=== PATIENT | female | born 1960 | race Caucasian/White ===

== ENCOUNTER 2023-09-09 17:39 | Emergency (ER) | payer OTHER, SELFPAY ==
[2023-09-09 17:45] VITALS: BP 151/94; PULSE 108; RESP 24; TEMP 37.9; O2SAT 98
--- NOTE | 2023-09-09 18:13 | ED.URI ---
HPI - URI/Sore Throat General Chief Complaint: Upper Respiratory Infection Stated Complaint: SOB/Sore Throat Time Seen by Provider: 09/09/23 18:13 Source: patient Mode of arrival: ambulatory Limitations: no limitations History of Present Illness HPI Narrative: 63-year-old female presents with complaint of, chest congestion, nasal congestion and headaches for 4 days. Afebrile. Positive chills. Denies chest pain and shortness of breath. Took bilateral to day to treat congestion. Using cough drops. States that cough is bad and cannot get any sleep at night. All systems reviewed and negative except as noted above. Related Data Home Medications Medication Instructions Recorded Confirmed amitriptyline 10 mg tablet 10 mg PO DAILY 09/09/23 09/09/23 aspirin 325 mg tablet 325 mg PO DAILY 09/09/23 09/09/23 hydroxyzine HCl 10 mg tablet 10 mg PO DAILY 09/09/23 09/09/23 lisinopril 40 mg tablet 40 mg PO DAILY 09/09/23 09/09/23 Allergies Allergy/AdvReac Type Severity Reaction Status Date / Time latex Allergy Mild Rash Verified 09/09/23 17:44 adhesive tape AdvReac Mild RASH Verified 09/09/23 17:44 Review of Systems Review of Systems: CONSTITUTIONAL: Denies fever, chills, or sweats. EYES: Denies visual changes, redness, or discharge. ENT: Reports rhinorrhea, congestion, sore throat. Denies otalgia. CARDIOVASCULAR: Denies chest pain, palpitations, or edema. RESPIRATORY: reports cough. Denies dyspnea. GASTROINTESTINAL: Denies abdominal pain, nausea, vomiting, or diarrhea. GENITOURINARY: Denies dysuria or hematuria. SKIN: Denies rash or itching. MUSCULOSKELETAL: Denies back pain, joint pain, or myalgia. NEUROLOGIC: Denies headache, numbness, or weakness. PSYCHIATRIC: Denies anxiety or depression. All other systems reviewed are negative, except as documented in HPI. PMFSH Comments At time of signature, agree with nursing past medical, surgical, social and family history. There is no relevant family history pertinent to the presenting complaint. Exam Narrative: GENERAL: This is a well-nourished, well-developed patient, in no apparent distress. HEAD: normocephalic, atraumatic. EYES: PERRL. Sclera clear/white. Vision is grossly intact. EARS: External ears normal, auditory canals clear and without drainage, TMs normal without perforation. Hearing grossly intact. NOSE: External nose normal with clear nasal drainage, mild congestion. THROAT: Mucous membranes moist, posterior pharynx clear. NECK: Neck supple, non-tender without lymphadenopathy, masses or thyromegaly. CARDIOVASCULAR: Regular rate and rhythm without murmurs, gallops, or rubs. RESPIRATORY: Clear to auscultation. Breath sounds equal bilaterally. No wheezes, rales, or rhonchi. SKIN: warm, Dry, intact with no suspicious lesions or rash, good texture and turgor. NEURO: awake, alert, and oriented to person, place and time. There were no obvious focal neurologic abnormalities. EXTREMITIES: No joint tenderness, effusion, or edema noted. Course Course Level of Care: Express Care Visit Vital Signs Vital signs: Vital Signs Temperature 37.9 C H 09/09/23 17:45 Pulse Rate 108 H 09/09/23 17:45 Respiratory Rate 24 H 09/09/23 17:45 Blood Pressure 151/94 H 09/09/23 17:45 Pulse Oximetry 98 09/09/23 17:45 Oxygen Delivery Room Air 09/09/23 17:45 Temperature 37.9 C H 09/09/23 17:45 Pulse Rate 108 H 09/09/23 17:45 Respiratory Rate 24 H 09/09/23 17:45 Blood Pressure 151/94 H 09/09/23 17:45 Pulse Oximetry 98 09/09/23 17:45 Oxygen Delivery Room Air 09/09/23 17:45 Reviewed Heart rate 88 auscultated, respiratory rate 20 at rest. MDM - URI/Sore Throat MDM Narrative Medical decision making narrative: negative COVID, influenza and strep. Lungs clear to auscultation. No respiratory distress. Patient nontoxic. Patient is aware of diagnosis, understands and agrees to treatment plan. Anticipatory guidance given. Patient a
== END 2023-09-09 18:32 | disposition home or self-care (01) ==
PROVIDERS: Emergency Provider Nurse Practitioner Family; PCP Physician Assistant
DX: J06.9 Acute upper respiratory infection, unspecified (principal); R05.9 Cough, unspecified; Z20.822 Contact with and (suspected) exposure to COVID-19; I10 Essential (primary) hypertension; K21.9 Gastro-esophageal reflux disease without esophagitis; M19.90 Unspecified osteoarthritis, unspecified site; Z86.718 Personal history of other venous thrombosis and embolism; Z79.82 Long term (current) use of aspirin
CPT/HCPCS: 87081; 87426; 87804; 87880; 99213; G0463